=== PATIENT | male | born 2005 | race Two or more races ===

== ENCOUNTER 2024-03-18 22:44 | Emergency (ER) | payer MEDICAID, SELFPAY ==
[2024-03-18 22:45] VITALS: BMI 25.8
[2024-03-18 22:53] VITALS: BP 158/76; PULSE 90; RESP 18; TEMP 37; O2SAT 97
--- NOTE | 2024-03-18 23:02 | XR_ITS ---
Examination: CT abdomen and pelvis without contrast. Coronal 3-D reconstructions. Sagittal 2-D reconstructions. Date and time of exam:March 18, 2024 11:11 PM Comparison January 07, 2024 Indications: Onset right flank pain beginning 2 hours ago CTDI: vol (mGy): 7.41 DLP: (mGycm): 392 Technique: Axial images of the abdomen have been obtained, 3 mm slice thickness Intravenous contrast material has not been administered. Low dose protocols were performed. One or more of the following dose reduction techniques were used; automated exposure control, adjustment of the mA and/or KV according to patient size, use of iterative reconstruction technique. Findings: No focal liver or splenic lesions Contracted gallbladder No pancreatic or adrenal mass No renal or ureteral calculi, no hydronephrosis 8mm fat-containing umbilical hernia Aorta normal size Small lymph nodes in the right lower mesentery Normal appendix No bowel obstruction No diverticulitis No bladder mass or bladder calculi Normal prostate No perianal abscess Intact osseous structures Impression: No renal or ureteral calculi, no hydronephrosis Normal appendix No bowel obstruction diverticulitis or free air. No bladder mass or bladder calculi
--- NOTE | 2024-03-18 23:02 | PD.EDABDPN ---
ED Abdominal Pain RME/HPI General Chief Complaint: Abdominal Pain Stated complaint: ABD PAIN Time seen by provider: 03/18/24 23:03 Arrival date/time: 03/18/24 22:44 18-year-old male with no known medical history presents to the emergency room with a chief complaint bilateral lower 7 out of 10 abdominal pain x 1 day. Source: patient Mode of arrival: ambulatory Limitations: no limitations Related Data Home Medications ?Medication ?Instructions ?Recorded ?Confirmed No Known Home Medications 10/21/17 10/21/17 Previous Rx's ?Medication ?Instructions ?Recorded ibuprofen 400 mg tablet 400 mg PO Q6H PRN pain, mild #30 11/29/18 tabs Allergies Allergy/AdvReac Type Severity Reaction Status Date / Time Penicillins Allergy Unknown RASH Verified 03/18/24 22:59 amoxicillin Allergy Difficulty Verified 03/18/24 22:59 Breathing Review of Systems Review of Systems Systems Reviewed: All systems reviewed, normal except as documented Constitutional Constitutional: Reports system reviewed and no additional complaints, except as documented, Denies fatigue, Denies fever(s), Denies headache(s) and Denies weakness Eyes Eyes: Reports system reviewed and no additional complaints, except as documented, Denies blurry vision and Denies change in vision ENT Ears, Nose, Mouth, and Throat: Reports system reviewed and no additional complaints, except as documented, Denies otalgia, Denies headache(s), Denies nasal congestion, Denies throat swelling and Denies vertigo Cardiovascular Cardiovascular: Reports system reviewed and no additional complaints, except as documented, Denies chest pain, Denies dyspnea and Denies dyspnea on exertion Respiratory Respiratory: Reports system reviewed and no additional complaints, except as documented, Denies chest congestion, Denies cough, Denies dyspnea, Denies dyspnea on exertion and Denies wheezing Gastrointestinal Gastrointestinal: Reports system reviewed and no additional complaints, except as documented, Reports abdominal pain, Reports cramping, Denies nausea and Denies vomiting Genitourinary Genitourinary: Reports system reviewed and no additional complaints, except as documented, Denies dysuria and Denies hematuria Musculoskeletal Musculoskeletal: Reports system reviewed and no additional complaints, except as documented and Denies back pain Integumentary/Breasts Skin/Breast: Reports system reviewed and no additional complaints, except as documented and Denies wounds Neurologic Neurologic: Reports system reviewed and no additional complaints, except as documented, Denies confusion, Denies headache(s), Denies lack of coordination, Denies vertigo and Denies weakness Psychiatric Psychiatric: Reports system reviewed and no additional complaints, except as documented, Denies anxiety, Denies confusion, Denies depression, Denies paranoia, Denies suicidal ideation and Denies tactile hallucinations Endocrine Endocrine: Reports system reviewed and no additional complaints, except as documented and Denies fatigue Hematologic/Lymphatic Hematologic/Lymphatic: Reports system reviewed and no additional complaints, except as documented and Denies lymphadenopathy Allergic/Immunologic Allergic/Immunologic: Reports system reviewed and no additional complaints, except as documented, Denies throat swelling, Denies urticaria and Denies wheezing Past Medical History Past Medical History CARDIAC: Negative Cardiac Disorders or Congestive Heart Failure RESPIRATORY: Negative Chronic Obstructive Pulmonary Disease (COPD) or Asthma GENITOURINARY: Negative Renal Disease ENDOCRINE: Negative Diabetes Mellitus Type 1 or Diabetes Mellitus Type 2 HEMATOLOGIC: Negative Sickle Cell Disease Social History SMOKING STATUS: Never smoker SECOND HAND EXPOSURE: No SUBSTANCE USE: does not use ED Exam General Limitations: Present no limitations General appearance: Present alert and in no apparent distress Head Head exam: Present atraumatic Eye Eye exam: Present normal appearance, PERRL and EOMI ENT ENT exam: Present normal exam, normal oropharynx and mucous membranes moist Neck Neck exam: Present normal inspection, full ROM and trachea midline Chest Chest inspection: Present normal inspection and symmetric chest wall rise Respiratory Respiratory exam: Present normal lung sounds bilaterally Cardiovascular Cardiovascular exam: Present regular rate, normal rhythm and normal heart sounds Abdominal Exam Abdominal exam: Present soft and normal bowel sounds; Absent heel tap sign, Kraft's sign or tenderness at McBurney's Point Abdominal tenderness: Present RLQ, LLQ and mild Extremities Exam Extremities exam: Present normal inspection and full ROM Back Exam Back exam: Present normal inspection and full ROM Neurological Exam Neurological exam: Present alert, oriented X3 and CN II-XII intact Psychiatric Psychiatric exam: Present normal affect and normal mood Skin Skin exam: Present warm, dry, intact and normal color Course Quality Measures none Orders Category Date Time Status CT abdomen pelvis wo con Stat Exams 03/18/24 23:02 Completed CBC Stat Lab 03/18/24 23:19 Completed CMP [Comprehensive Metabolic Panel] Stat Lab 03/18/24 23:19 Completed Lipase Stat Lab 03/18/24 23:19 Completed UA [Urinalysis] Stat Lab 03/18/24 23:20 Completed Urine Culture Stat Lab 03/18/24 23:20 Received mg Hyd/Al Hyd/Catrachito Susp [Maalox Susp] Med 03/18/24 23:02 Discontinued 30 ml PO X1 ONE Vital Signs Vital signs: Vital Signs Temperature 98.6 F 03/18/24 22:53 Pulse Rate 90 03/18/24 22:53 Respiratory Rate 18 03/18/24 22:53 Blood Pressure 158/76 H 03/18/24 22:53 Pulse Oximetry (%) 97 03/18/24 22:53 Oxygen Delivery Method Room Air 03/18/24 22:53 O2 saturation 97% within normal limits Abdominal Pain MDM MDM Narrative MDM Narrative:: 18-year-old male with no known medical history presents to the emergency room with a chief complaint bilateral lower 7 out of 10 abdominal pain x 1 day. Clinically the patient appears nontoxic and in no apparent distress. Physical examination shows tenderness and pain to the right lower quadrant as well as the left lower quadrant. The patient denies any nausea vomiting or diarrhea. CT of the abdomen pelvis was completed and shows no acute findings. CBC CMP were negative for any leukocytosis or other acute findings. Urinalysis was negative. Patient was discharged and educated to follow-up with primary care provider and return to the emergency room for any evidence of worsening signs or symptoms Patient data External records reviewed:: [facility] previous records Clinical information provided by:: patient Social determinants that could affect healthcare access:: none Patient has the following chronic illnesses:: No chronic illness How is presenting disease/condition affected by chronic disease/condition?: no chronic disease Evaluation data The following diagnostics were reviewed and interpreted by me:: lab results and radiology exam(s) Lab and/or radiology exams considered but not ordered:: Labs and radiology exams considered and ordered Interpretation Summary: CT abdomen and pelvis-Findings: No focal liver or splenic lesions Contracted gallbladder No pancreatic or adrenal mass No renal or ureteral calculi, no hydronephrosis 8mm fat-containing umbilical hernia Aorta normal size Small lymph nodes in the right lower mesentery Normal appendix No bowel obstruction No diverticulitis No bladder mass or bladder calculi Normal prostate No perianal abscess Intact osseous structures Impression: No renal or ureteral calculi, no hydronephrosis Normal appendix No bowel obstruction diverticulitis or free air. No bladder mass or bladder calculi Medications / Prescriptions Medications or Prescriptions considered but not ordered:: Medication given Medication administrations:: Medication Administration History Discontinued Medications Al Hydrox/Mg Hydrox/Simethicone (Mg Hyd/Al Hyd/Catrachito (Maalox Reg) Susp 30 Ml Udc) 30 ml PO X1 ONE Stop: 03/18/24 23:03 Last Admin: 03/18/24 23:22 Dose: 30 ml Documented By: JOSE LUIS Medication given Consultations Consultation(s) initiated? (list below): No Diagnosis Differential diagnosis abdominal pain: abdominal pain, acute appendicitis, constipation, gastroenteritis and pancreatitis Most likely diagnosis given after review of the tests above:: Gastroenteritis Admission Indicated Admission indicated?: not indicated Admission Request Was there a request for admission?: No Disposition Plan Disposition Plan: Discharge Discharge Attestation Discharge Attestation: The patient and all family members were given an opportunity to ask questions and understood the discharge instructions. Discharge instructions specifically effects, indications for sooner follow up or return to the emergency department, and the expected course of current diagnosis. Patient condition: Stable Discharge Plan Plan Patient Disposition: HOME (Self Care) Disposition Comment: Stable Prescriptions/Referrals Prescriptions/Med Rec: No Action No Known Home Medications ibuprofen 400 mg tablet 400 mg PO Q6H PRN (Reason: pain, mild) Qty: 30 0RF Referrals: Kobi Robles MD [Primary Care Provider] - In 1 week Problem List Clinical Impression: Gastroenteritis Patient/Caregiver Discharge Instructions Education Materials: ED Gastroenteritis, Noninfectious Additional Instructions: Please follow-up with your primary care provider in the next [address] of your abdomen and pelvis was completed and was negative for any acute findings. Your blood work and urine were also negative for any acute findings. For any evidence of worsening signs or symptoms please return to the emergency room immediately Print Language: Slovenian Stand Alone Forms: Natasha Award Info., Patient Portal Info Letter PA/TOBACCO DRYING MACHINE OPERATOR Supervising Physician PA/TOBACCO DRYING MACHINE OPERATOR Supervising Physician: Dr. Bell
[2024-03-18] MEDS: MG HYD/AL HYD/SIME (Maalox Reg) SUSP 30 ML UDC PO (23:22)
[2024-03-18 23:35] LABS: Collection Type, Urine Clean Catch
[2024-03-18 23:42] LABS: Basophils # (Auto) 0.1 Thou/mm3 (0.0-0.2); Basophils % (Auto) 1 % (0-2.5); Eosinophils # (Auto) 0.2 Thou/mm3 (0.0-0.5); Eosinophils % (Auto) 2 % (0-10); Hemoglobin 15.9 g/dL (13.5-16.0); Immature Granulocytes % (Auto) 0 % (0-0); Immature Granulocytes Auto 0.03 Thou/mm3 (0.00-0.00); Lymphocytes # (Auto) 2.5 Thou/mm3 (1.0-4.8); Lymphocytes % (Auto) 26 % (10-50); Mean Corpuscular HGB Conc 34.6 g/dl (31.0-37.0); Mean Corpuscular Hemoglobin 30.3 pg (25.0-35.0); Mean Corpuscular Volume 88 fL (80-100); Monocytes # (Auto) 0.6 Thou/mm3 (0.0-0.8); Monocytes % (Auto) 7 % (0-12); Neutrophils # (Auto) 6.1 Thou/mm3 (1.8-7.7); Neutrophils % (Auto) 64 % (37-80); Nucleated Red Blood Cell % 0 /100 WBC (0); Platelet Count 168 Thou/mm3 (140-440); RDW Standard Deviation 39.4 fL (35.1-43.9); Red Blood Count 5.24 Miln/mm3 (4.50-5.90); White Blood Count 9.5 Thou/mm3 (4.5-11.0)
[2024-03-18 23:58] LABS: Bacteria,Urine Rare; Bilirubin,Urine Negative (Negative); Blood,Urine Negative (Negative); Clarity,Urine Clear (Clear/Hazy); Color,Urine Lt-Yellow (Lt Yel-Yel); Glucose, Urine Negative (Negative); Ketones,Urine Negative (Negative); Leukocyte Esterase,Urine Negative (Negative); Nitrite,Urine Negative (Negative); PH,Urine 6.5 (5.0-7.0); Protein,Urine Negative (Neg - Trace); RBC,Urine 1 /hpf (0-3); Squamous Epithelial Cell,Urine 1 /hpf (0-5); Urobilinogen,Urine Negative mg/dL (0.0-1.0); WBC,Urine < 1 /hpf (0-5)
[2024-03-18 23:59] LABS: Alanine Aminotransferase 28 U/L (10-49); Albumin, Serum 5.2 gm/dL (3.5-5.0); Albumin/Globulin Ratio 2.7 (1.2-2.2); Alkaline Phosphatase 97 U/L (46-116); Anion Gap 10 (7-16); Aspartate Amino Transferase 32 U/L (0-34); BUN/Creatinine Ratio 8 Ratio (12-20); Bilirubin,Total 0.4 mg/dL (0.3-1.2); Blood Urea Nitrogen 9 mg/dL (9-23); Calcium 10.2 mg/dL (8.3-10.6); Calcium (Corrected) 10.2 mg/dL (8.5-10.1); Carbon Dioxide 30.8 mMol/L (20.0-31.0); Chloride 102 mMol/L (98-107); Creatinine (Component) 1.1 mg/dL (0.6-1.3); Estimated Creatinine Clearance 107.1 mL/min (>60); Globulin 1.9 gm/dL (2.3-3.5); Glucose 106 mg/dL (74-106); Lipase 47 U/L (12-53); Osmolality,Calculated 283 (275-295); Potassium 3.9 mMol/L (3.4-5.1); Sodium 143 mMol/L (136-145); Total Protein 7.1 gm/dL (5.7-8.2); eGFR > 60 See Note
[2024-03-19 00:17] VITALS: RESP 18
== END 2024-03-19 00:18 | disposition home or self-care (01) ==
PROVIDERS: Nurse Practitioner Family; Emergency Provider Emergency Medicine; PCP Pediatrics
DX: K52.9 Noninfective gastroenteritis and colitis, unspecified (principal)
CPT/HCPCS: 36415; 74176; 80053; 81001; 83690; 85025; 87086; 99284; A9270

== ENCOUNTER 2024-08-19 08:18 | Emergency (ER) | payer MEDICAID, SELFPAY ==
[2024-08-19 08:19] VITALS: BMI 28.8
[2024-08-19 08:28] VITALS: BP 126/75; PULSE 75; RESP 12; TEMP 36.7; O2SAT 97
--- NOTE | 2024-08-19 08:30 | PD.EDMALE ---
ED Male Genitalurinary RME/HPI General Chief complaint: Urogenital-Male Stated complaint: RIGHT TESTICULAR SWELLING WITH BLEED Time Seen by Provider: 08/19/24 08:27 Arrival date/time: 08/19/24 08:18 RME / HPI RME / HPI Narrative: This section includes all my notes and documentations, including HPI, PE, and ED course. Juan Sandra MD HPI: 18-year-old male here to be evaluated with possible scrotal bleeding. Woke up this morning to possible bleeding from right testicle. No hematuria. No enlarged testicle. No warmth. No pain. No other complaints. ROS: All negative except as documented in HPI. Physical Exam: General: Alert and oriented. Eyes: Conjunctivae and lids clear. ENT: No nasal congestion. Neck: Supple. Lungs: No respiratory distress. Skin: Warm and dry. Neuro: Alert and oriented X 3. Genitalia: Normal external genitalia with uncircumcised penis. No active bleeding. No scrotal edema/calor/erythema/tenderness. No inguinal hernia bilaterally. No obvious source of bleeding, no active bleeding currently. Recommended expectant management and close monitoring at home. Based on my best medical judgment, made decision no further evaluation or treatment indicated at this time. Patient and mom understands and agrees to the discharge instructions customized and printed, see below. Discharge Instructions from Dr. Sandra printed for you: 1. The exam today is completely normal. No source of bleeding. No swelling or redness or warmth or pain. 2. Continue to monitor at home. 3. Seek immediate medical care with more bleeding, enlarged testicle(s), redness, warmth, pain, fever, or with any concerns. Juan Sandra MD Related Data Home Medications ?Medication ?Instructions ?Recorded ?Confirmed No Known Home Medications 10/21/17 10/21/17 Previous Rx's ?Medication ?Instructions ?Recorded ibuprofen 400 mg tablet 400 mg PO Q6H PRN pain, mild #30 11/29/18 tabs Allergies Allergy/AdvReac Type Severity Reaction Status Date / Time Penicillins Allergy Unknown RASH Verified 08/19/24 08:21 amoxicillin Allergy Difficulty Verified 08/19/24 08:21 Breathing Course Quality Measures none Vital Signs Vital signs: Vital Signs Temperature 98.1 F 08/19/24 08:28 Pulse Rate 75 08/19/24 08:28 Respiratory Rate 12 08/19/24 08:28 Blood Pressure 126/75 08/19/24 08:28 Pulse Oximetry (%) 97 08/19/24 08:28 Oxygen Delivery Method Room Air 08/19/24 08:28 Urogenital - Male Patient data External records reviewed:: None Clinical information provided by:: patient and parent Social determinants that could affect healthcare access:: none Patient has the following chronic illnesses:: Patient has no chronic illnesses. How is presenting disease/condition affected by chronic disease/condition?: no chronic disease Evaluation data The following diagnostics were reviewed and interpreted by me:: other (specify) (No diagnostics ordered.) Lab and/or radiology exams considered but not ordered:: None Interpretation Summary: No diagnostics ordered. Medications / Prescriptions Medications or Prescriptions considered but not ordered:: None Medication administrations:: No medication ordered. Consultations Consultation(s) initiated? (list below): No Diagnosis Urogenital Male Differential Diagnosis: epididymitis, inguinal hernia and other (Scrotal abrasion/laceration) Most likely diagnosis given after review of the tests above:: Scrotal abrasion Admission Indicated Admission indicated?: not indicated Explain why admission is indicated or not indicated:: With no serious condition, there was no indication for admission. Admission Request Was there a request for admission?: No Disposition Plan Disposition Plan: Discharge Discharge Attestation Discharge Attestation: The patient and all family members were given an opportunity to ask questions and understood the discharge instructions. Discharge instructions specifically effects, indications for sooner follow up or return to the emergency department, and the expected course of current diagnosis. Patient condition: Stable Discharge Plan Plan Patient Disposition: HOME (Self Care) Prescriptions/Referrals Prescriptions/Med Rec: No Action No Known Home Medications ibuprofen 400 mg tablet 400 mg PO Q6H PRN (Reason: pain, mild) Qty: 30 0RF Problem List Clinical Impression: Abrasion of scrotum Patient/Caregiver Discharge Instructions Discharge Activity: activity as tolerated Education Materials: ED Abrasions Additional Instructions: Discharge Instructions from Dr. Sandra printed for you: 1. The exam today is completely normal. No source of bleeding. No swelling or redness or warmth or pain. 2. Continue to monitor at home. 3. Seek immediate medical care with more bleeding, enlarged testicle(s), redness, warmth, pain, fever, or with any concerns. Print Language: Greenlandic Stand Alone Forms: Natasha Award Info., Patient Portal Info Letter
== END 2024-08-19 08:34 | disposition home or self-care (01) ==
LOC: SERX 08:45
PROVIDERS: Emergency Provider Emergency Medicine
DX: S30.813A Abrasion of scrotum and testes, initial encounter (principal); X58.XXXA Exposure to other specified factors, initial encounter
CPT/HCPCS: 99281